=== PATIENT | female | born 1950 | race Caucasian/White ===

== ENCOUNTER 2021-01-12 11:36 | Emergency (ER) | payer OTHER ==
[~2021-01-12] VITALS: Ht 154.9 cm; Wt 63.5 kg
[~2021-01-12 11:36] MED LIST: ACET325 PO; BIO IDENTICAL HORMON TOP; DHEA PO; ERGO400 PO; MULVITMIND PO
[2021-01-12 12:02] LABS: BASOPHILS ABSOLUTE AUTO 0.06 K/mm3 (0.00-0.23); BASOPHILS PERCENT AUTO 1 % (0-2); EOSINOPHILS ABSOLUTE AUTO 0.12 K/mm3 (0.00-0.68); EOSINOPHILS PERCENT AUTO 2 % (0-6); Hematocrit 43.5 % (33.0-51.0); Hemoglobin 15.1 g/dL (11.5-16.0); IMMATURE GRAN ABSOLUTE AUTO 0.02 K/mm3 (0.00-0.10); IMMATURE GRAN PERCENT AUTO 0 % (0-1); LYMPHOCYTES ABSOLUTE AUTO 1.69 K/mm3 (0.84-5.20); LYMPHOCYTES PERCENT AUTO 22 % (21-46); MONOCYTES ABSOLUTE AUTO 0.61 K/mm3 (0.16-1.47); MONOCYTES PERCENT AUTO 8 % (4-13); Mean Corpuscular HGB 34.5 pg (26.0-34.0); Mean Corpuscular HGB Conc 34.7 g/dL (31.5-36.5); Mean Corpuscular Volume 99 fL (80-100); Mean Platelet Volume 9.9 fL (9.1-12.4); NEUTROPHILS ABSOLUTE AUTO 5.09 K/mm3 (1.96-9.15); NEUTROPHILS PERCENT AUTO 67 % (41-73); Platelet Count 208 K/mm3 (150-400); RDW Coefficient Variation 11.8 % (11.7-14.2); RDW Standard Deviation 43.7 fL (35.1-46.3); Red Blood Cell Count 4.38 M/mm3 (3.80-5.20); White Blood Cell Count 7.59 K/mm3 (4.00-11.30)
[2021-01-12 12:18] LABS: Alanine Aminotransfer (ALT/SGP 38 U/L (12-78); Albumin, Blood 3.8 g/dL (3.4-5.0); Albumin/Globulin Ratio 0.9 (0.8-1.8); Alk Phos 44 U/L (50-136); Anion Gap 6 mmol/L (6-16); Aspartate Aminotrans (AST/SGOT 31 U/L (12-37); Bilirubin, Total 0.4 mg/dL (0.1-1.0); Blood Urea Nitrogen 15 mg/dL (8-24); Bun/Creatinine Ratio 19.7 (12.0-20.0); CO2, Blood 26 mmol/L (21-32); Calcium, Blood 9.6 mg/dL (8.5-10.1); Chloride, Blood 110 mmol/L (98-108); Creatinine, Blood 0.76 mg/dL (0.40-1.00); Globulin, Blood 4.1 g/dL (2.2-4.0); Glomerular Filtration Rate >60 (60-); Glucose, Blood 141 mg/dL (70-99); Sodium, Blood 142 mmol/L (136-145); Total Protein, Blood 7.9 g/dL (6.4-8.2); Troponin I <0.015 ng/mL (0.000-0.040)
[2021-01-12 13:21] LABS: Free Thyroxine 0.9 ng/dL (0.70-1.60); Thyroid Stimulating Hormone 1.75 uIU/mL (0.360-4.800)
== END 2021-01-12 13:15 | disposition home or self-care (01) ==
LOC: ER 11:36
PROVIDERS: Emergency Medicine
DX: I47.1 Supraventricular tachycardia (principal); Z88.5 Allergy status to narcotic agent
CPT/HCPCS: 71045; 80053; 84439; 84443; 84484; 85025; 93005; 93010; 96374; 99285-25

== ENCOUNTER → 2022-01-22 | Outpatient (CLI) | payer OTHER | LOC: LAB 12:00 → LAB SHORT 12:00 | DX: R30.0 Dysuria (principal) | CPT/HCPCS: 87077; 87086; 87186 ==

== ENCOUNTER → 2022-03-18 | Outpatient (CLI) | payer OTHER | END | disposition home or self-care (01) | LOC: LAB SHORT 12:58 → PLD 12:58 | DX: L57.0 Actinic keratosis (principal) | CPT/HCPCS: 88305 ==

== ENCOUNTER 2022-12-26 07:59 | Day surgery (SDC) | payer OTHER ==
[~2022-12-26] VITALS: Ht 154.9 cm; Wt 64.1 kg
[2022-12-26] MEDS ORDERED: NIVA THYROID60 MG PO (09:09)
[2022-12-26] MEDS ORDERED: IMITREX50 M2 PO (09:09)
--- NOTE | 2022-12-26 09:16 | NUR ---
12/26/22 0916 Trista Rivera PT SITTING COMFORTABLY IN BED. WARM BLANKETS PROVIDED. CALL LIGHT WITH IN REACH. BED IN LOWEST POISITION.
--- NOTE | 2022-12-26 11:06 | NUR ---
12/26/22 1106 Delfino Chavez 1 MG EPI ADDED TO THE FIRST BAG OF LR PER ORDER FOR IRRIGATION AT [facility]. EPI 0.1 MG (1MG/ML) MIXED & VERIFIED W/ 10 MLS NS TO MAKE EPI 1:100,000 FOR INJECTION AT [facility] BY DR DEVI
[2022-12-26 13:49] VITALS: BP 164/88
--- NOTE | 2022-12-26 13:59 | NUR ---
12/26/22 8915 Annalise Montanez PT STATES THAT SHE IS VERY UNCOMFORTABLE AND IS READY TO GO HOME. PT STATES THAT SHE WILL FEEL BETTER IF SHE CAN GO HOME. TALKED TO PT ABOUT NOT WANTING TO SEND HER HOME IF SHE IS IN A LOT OF PAIN, WHICH SHE STATES HAS GOTTEN BETTER AND IS AT ABOUT A 4/10.
== END 2022-12-26 14:43 | disposition home or self-care (01) ==
LOC: ORSCSDS 07:59
PROVIDERS: Orthopaedic Surgery
PROC: 0RBJ4ZZ Excision of Right Shoulder Joint, Percutaneous Endoscopic Approach (ICD-10-PCS; principal; 2022-12-26 10:00)
DX: M75.111 Incomplete rotator cuff tear or rupture of right shoulder, not specified as traumatic (principal); M75.41 Impingement syndrome of right shoulder; M94.211 Chondromalacia, right shoulder; M65.811 Other synovitis and tenosynovitis, right shoulder; E03.9 Hypothyroidism, unspecified; Z79.899 Other long term (current) drug therapy
CPT/HCPCS: A9270; J0171; J0690; J1100; J1885; J2250; J2270; J2405; J2704; J3010; J7120

== ENCOUNTER → 2024-02-09 | Outpatient (CLI) | payer OTHER ==
[~2024-02-09] MED LIST changes: +IMITREX50 M2 PO; +NIVA THYROID60 MG PO
== END | disposition home or self-care (01) ==
LOC: LAB 18:55 → LAB SHORT 18:55
DX: R30.0 Dysuria (principal)
CPT/HCPCS: 87086